=== PATIENT | male | born 1975 | race Caucasian/White ===

== ENCOUNTER 2016-09-30 14:37 | Emergency (ER) | payer OTHER | END 2016-09-30 16:32 | disposition home or self-care (01) | LOC: FER 14:37 | DX: S20.212A Contusion of left front wall of thorax, initial encounter (principal); M25.522 Pain in left elbow; M79.641 Pain in right hand; F17.210 Nicotine dependence, cigarettes, uncomplicated; Y09 Assault by unspecified means; Y92.149 Unspecified place in prison as the place of occurrence of the external cause | CPT/HCPCS: 71101; 73060; 73080; 73140; 99284 ==